=== PATIENT | male | born 1960 | race Caucasian/White ===

== ENCOUNTER 2023-10-08 12:50 | Day surgery (SDC) | payer MEDICARE ==
[~2023-10-08] VITALS: Ht 177.8 cm; Wt 111.6 kg
[~2023-10-08 12:50] MED LIST: ALBU90OI; BACL20 PO; GABA300 PO; LOSARTAN POTAS100 M1 PO; Mobic15 MG PO; Ropivacaine 0.5% HCl/Pf 5 MG/ML 20ML VIAL ONE; TAMS.4ER PO
[2023-10-08] MEDS ORDERED: NS 50 ML IV ONE (12:58)
[2023-10-08] MEDS ORDERED: CeFAZolin Sodium 2,000 MG VIAL ONE (12:58)
[2023-10-08] MEDS ORDERED: Dexamethasone Sod Phos 10 MG/ML 1ML VIAL ONE ×2 (13:18→14:36)
[2023-10-08] MEDS ORDERED: EPINEPhrine HCl 1 MG/ML 1ML Amp ONE (13:19)
[2023-10-08] MEDS ORDERED: Midazolam HCl 1MG / ML 2ML Vial ONE (13:19)
[2023-10-08] MEDS ORDERED: Bupivacaine 0.5% HCl 5 MG/ML 30MLVIAL ONE (13:20)
[2023-10-08] MEDS ORDERED: Lactated Ringer's 1,000 ML IV ONE (13:28)
[2023-10-08] MEDS ORDERED: propofoL 20 ML IV ONE (14:05)
[2023-10-08] MEDS ORDERED: FentaNYL Citrate 50 MCG/ML 2 ML Injection ONE (14:05)
--- NOTE | 2023-10-08 14:21 | NUR ---
10/08/23 1421 Laisha Chance CONSUTLED WITH REGARDING THE PATIENTS SIGNIFICANTLY HIGH BP . PATIENT DENIED SOB, CHEST PAIN, OR FEELING DIZZY. HERMAN CONSULTED WITH PATIENT AND AGREED TO PROCEED WITH THIS CASE.
[2023-10-08] MEDS ORDERED: EPINEPhrine HCl 1 MG/ML 1ML Amp XX ONE (14:30)
[2023-10-08] MEDS ORDERED: Ondansetron HCl 2 MG / ML 2ML Vial ONE (14:36)
--- NOTE | 2023-10-08 15:25 | NUR ---
10/08/23 1525 Shannon Lofton ROPIVACAINE 0.5% 20 ML MIXED & VERIFIED W/ EPI 0.1 ML (1MG/ML) TO MAKE ROPIVACAINE 0.5% 1:200,000 FOR INJECTION AT [facility] BY DR ORTIZ. ALL 20 ML INJECTED.
--- NOTE | 2023-10-08 15:44 | NUR ---
10/08/23 1544 Caryn Morris CHARTING UNDER PKB
[2023-10-08 16:46] VITALS: BP 172/98
--- NOTE | 2023-10-08 16:50 | NUR ---
10/08/23 1650 Caryn Morris LATE ENTRY: PER ANESTHESIA ORDERS BY DR SUTTON, ADMINISTER LABETALOL IF MAP OVER 130, IN BOTH PACU AN STEPDOWN PT'S MAP FLUCTUATED BETWEEN 120S-130. BP AND MAP WOULD LESSEN W/ PT RESTRICTING MOVEMENT AND TALKING. PT VERBALIZED READINESS TO D/C HOME, STATED HE FELT WELL DENIED HEADACHE. RN CONSULTED W/ BOTH AND , ADVISED OF BLOOD PRESSURES, BOTH MDS OK W/ PT DISCHARGING W/ BP OF 180/94, MAP 121.
== END 2023-10-08 16:35 | disposition home or self-care (01) ==
LOC: ORSCSDS 12:50
PROVIDERS: Podiatrist Foot & Ankle Surgery
PROC: 0SGH04Z Fusion of Right Tarsal Joint with Internal Fixation Device, Open Approach (ICD-10-PCS; principal; 2023-10-08 14:15)
DX: M19.071 Primary osteoarthritis, right ankle and foot (principal); I10 Essential (primary) hypertension; Z79.899 Other long term (current) drug therapy; Z68.35 Body mass index [BMI] 35.0-35.9, adult
CPT/HCPCS: C1713; C1734; C1769; J0171; J0690; J1100; J2250; J2405; J2704; J2795; J3010